=== PATIENT | female | born 1955 | race Caucasian/White ===

== ENCOUNTER 2019-05-06 07:19 | Day surgery (SDC) | payer OTHER ==
[~2019-05-06 07:19] MED LIST: BALANCED SALT SOLN 15 ML OPH IRRIG
[2019-05-06] MEDS: MOXIFLOXACIN 0.5% 3 ML OPH LEFT EYE (08:15)
[2019-05-06] MEDS ORDERED: TOBRAMYCIN/DEXAMETH 2.5 ML OPH (10:46)
[2019-05-06] MEDS ORDERED: LIDOCAINE 2% (SDV) 5 ML INJ (11:00)
[2019-05-06] MEDS ORDERED: PROPOFOL 200 MG INJ (11:00)
[2019-05-06] MEDS ORDERED: ONDANSETRON 4 MG INJ IV (11:00)
[2019-05-06] MEDS ORDERED: ALBUTEROL 0.083% (NEB) 2.5 MG/3 ML AMP HHN (11:00)
[2019-05-06] MEDS ORDERED: ACETAMINOPHEN 500 MG TAB PO (11:00)
[2019-05-06] MEDS ORDERED: FENTAnyl 50 MCG/ML VIAL IV (11:00)
[2019-05-06] MEDS ORDERED: MIDAZOLAM 1 MG/ML 2 ML INJ (11:20)
[2019-05-06] MEDS: MITOMYCIN 5 MG INJ OP (11:22)
[2019-05-06] MEDS: TOBRAMYCIN/DEXAMETH 3.5 GM OPH OINT (11:23)
[2019-05-06] MEDS: LIDOCAINE 1.5%/EPI MPF (SDV) 30 ML VIAL (11:23)
== END 2019-05-06 13:03 | disposition home or self-care (01) ==
LOC: SDS 07:19
DX: H11.002 Unspecified pterygium of left eye (principal); I10 Essential (primary) hypertension; E78.5 Hyperlipidemia, unspecified; E11.9 Type 2 diabetes mellitus without complications
CPT/HCPCS: 65426; 82962